=== PATIENT | male | born 1940 | race Caucasian/White ===

== ENCOUNTER 2016-06-03 13:44 | Inpatient (IN) | payer MEDICARE, BC ==
[2016-06-03] MEDS ORDERED: ALBUTEROL 0.083% 3 ML NEB NEB ONE (14:19)
[2016-06-03] MEDS ORDERED: Albuterol/Ipratropium Neb 3 ML NEB NEB ONE (14:19)
[2016-06-03] MEDS ORDERED: METHYLPREDNISOLONE 125 MG/2 ML VIAL IV ONE (14:19)
[2016-06-03 14:58] LABS: ALLEN'S TEST PASS; BEb 1.2 (+/- 2); TCO2 27.3 MMOL/L (23-27)
[2016-06-03 14:59] LABS: ABG Draw Site Right Radial
[2016-06-03] MEDS ORDERED: METHYLPREDNISOLONE 125 MG/2 ML VIAL ONE (15:08)
[2016-06-03 15:39] LABS: MPV 9.1 fL (7.4-10.4)
[2016-06-03 15:51] LABS: CALC CORRECTED 9.2 MG/DL (8.4-10.2); CALCIUM 8.5 MG/DL (8.4-10.2); CREATININE 1.5 MG/DL (0.66-1.25); TOTAL PROTEIN 6.4 G/DL (6.3-8.2)
[2016-06-03 15:52] LABS: PARTIAL THROMB. TIME 19.7 SEC (22-35)
[2016-06-03 16:03] LABS: SEG NEUTROPHIL 94 % (45-76)
[2016-06-03 16:04] LABS: TOTAL CELL COUNT 100
--- NOTE | 2016-06-03 16:10 | DIRPT ---
CLINICAL DATA: 76-year-old male with chest congestion and productive cough with shortness of breath for 3 weeks. Subsequent encounter. EXAM: CHEST 2 VIEW COMPARISON: 05/27/2016. FINDINGS: Interval development of left lower lobe consolidation. Recommend followup until clearance. Central pulmonary vascular prominence. Right base subsegmental atelectasis/scarring. Sequential pacemaker/ AICD in place with leads unchanged in position. Post CABG. Cardiomegaly. Calcified mildly tortuous aorta. IMPRESSION: Interval development of left lower lobe consolidation. Electronically Signed By: Francisco J Baxter M.D. On: 06/03/2016 16:07
--- NOTE | 2016-06-03 16:46 | EDPRACDOC ---
- General Information Stated Complaint: RESP Time Seen by Provider: 06/03/16 14:18 Home Medications: Home Medications Amiodarone HCl 200 mg PO HS 09/20/12 Budesonide/Formoterol [Symbicort 160-4.5 Mcg Inhaler] 2 inh INH BID PRN Dexlansoprazole [Dexilant] 60 mg PO QAM 09/20/12 Glimepiride [Amaryl] 4 mg PO QAM 09/20/12 Metoprolol Tartrate 25 mg PO BID 09/20/12 Lisinopril [Prinivil] 20 mg PO QAM 10/26/12 Furosemide [Lasix] 40 mg PO BID #90 tab 11/10/12 Albuterol Sulfate [Proair Hfa] 2 puff INH Q2H PRN #1 inhaler 05/27/16 CYANOCOBALAMIN (Vitamin B-12) [Vitamin B-12] 1,000 mcg IM QMONTH 05/27/16 Levofloxacin [Levaquin] 750 mg PO DAILY 05/27/16 Allergies/Adverse Reactions: Allergies Allergy/AdvReac Type Severity Reaction Status Date / Time codeine Allergy Unknown Verified 05/27/16 15:13 NARCOTICS Allergy Confusion Uncoded 05/27/16 15:14 - History of Present Illness Shortness of Breath: Moderate Relevant History: Reports: COPD Cough: Reports: Productive, Green, Yellow SOB Worsens with: Reports: Exertion, Movement SOB Improves with: Reports: Inhaler, Rest Associated Signs and symptoms: Reports: Nasal Symptoms, Nausea. Denies: Vomiting, Diarrhea, Myalgia Other History: SEEN THIS ED LAST WEEK FOR SAME, PLACED ON PRED AND LEVAQUIN. HAS PROGRESSIVELY GOTTEN WORSE. ED Past Medical History - History Reviewed Yes Nurses notes reviewed and agree except as marked - Patient Medical History Cardiac History: Reports: Coronary Artery Disease, Atrial Fibrillation, Hypertension, Congestive Heart Failure, Heart Attack, Cardiac Catheterization ( [id number] [id number]), CABG (4 vessel), Pacemaker, Cardiomyopathy Respiratory History: Reports: Asthma Musculoskeletal History: Reports: Arthritis Psychological History: Denies: Depression Systemic History: Reports: Diabetes, Hypothyroidism. Denies: Cancer Surgical History: Reports: CABG (4 vessel), Cardiac Catheterization (JUL [id number]) - Family Medical History Reports: Hypertension (MOTHER), Diabetes (PATERNAL G.MOTHER), Cancer (SISTER), Cardiac Disorders (FATHER, BROTHER, SISTER). Denies: Stroke - Social Medical History Smoking Status: Former smoker ETOH: None Substance Abuse: None Lives In: Home EDM Review of Systems - Review of Systems ROS Negative Except as Marked: Yes All systems reviewed and were negative except as marked ROS Unobtainable: Yes Review of systems cannot be obtained due to the patient's medical condition - Physical Exam Constitutional: Alert, Cachectic, Confused, Distress, Other (DISSHELVED) Oriented to: Time, Person, Place Last recorded Vital Signs: Last Vital Signs Temp Pulse 64 06/03/16 14:42 Resp 22 06/03/16 14:42 BP 141/64 06/03/16 14:42 Pulse Ox 88 L 06/03/16 14:42 Oxygen Pulse Oxygen Saturation 88 O2 Device Room Air Oxygen Flow Rate Fraction of Inspired Oxygen ( FIO2) - HEENT Head: Normal Oropharynx: Membranes Dry Nose: No Symptoms Reported Neck: Normal. negative: Edema - Respiratory/Cardiovascular Respiratory: Accessory Muscle Use, Diminished, Rales, Tachypnea, Other ( UNCOMFORTABLE,, INCREASE WOB) Cardiovascular: Normal - GI Auscultation: Normal Palpation: Normal Tenderness: Non tender - Musculoskeletal Back: Normal Extremities: Normal. negative: Pedal Edema - Integumentary Skin: Warm, Diaphoretic - Neurologic Memory Impaired: Normal Motor Function: Normal Mood Description: Anxious, Appropriate Thought: Coherent ED SOB MDM - Re-evaluation Re-evaluation 2 Re-evaluation Time: 16:00 Re-evaluation: MUCH IMPROVED ON OXYGENT - Results Result Diagrams: 06/03/16 15:20 06/03/16 15:20 Results: WBC 27.0 xk/uL (3.8-10.8) H 06/03/16 15:20 RBC 5.67 xM/uL (4.70-6.10) 06/03/16 15:20 Hgb 16.2 g/dL (14.0-18.0) 06/03/16 15:20 Hct 48.9 % (42-52) 06/03/16 15:20 MCV 86 fL (80-94) 06/03/16 15:20 MCH 28.5 pg (27-32) 06/03/16 15:20 MCHC 33.1 g/dl (33-36) 06/03/16 15:20 RDW 14.5 % (11.5-14.5) 06/03/16 15:20 Plt Count 91 xk/uL (130-400) L 06/03/16 15:20 MPV 9.1 fL (7.4-10.4) 06/03/16 15:20 Neut % (Auto) Cancelled 06/03/16 15:20 Lymph % (Auto) Cancelled 06/03/16 15:20 Williams % (Auto) Cancelled 06/03/16 15:20 Eos % (Auto) Cancelled 06/03/16 15:20 Baso % (Auto) Cancelled 06/03/16 15:20 Absolute Neuts (auto) Cancelled 06/03/16 15:20 Absolute Lymphs (auto) Cancelled 06/03/16 15:20 Seg Neuts % (Manual) 94 % (45-76) H 06/03/16 15:20 Band Neutrophils % 1 % (0-5) 06/03/16 15:20 Lymphocytes % (Manual) 4 % (17-44) L 06/03/16 15:20 Monocytes % (Manual) 1 % (0-10) 06/03/16 15:20 Absolute Neutrophils 25.65 xk/uL (1.7-8.2) H 06/03/16 15:20 Absolute Lymphocytes 1.08 xk/uL (0.65-4.75) 06/03/16 15:20 Vacuolated Neuts 1+ 06/03/16 15:20 Platelet Estimate Norm (NORMAL) 06/03/16 15:20 RBC Morphology Norm 06/03/16 15:20 PT 10.3 SEC (9.2-11.2) 06/03/16 15:20 INR 1.0 06/03/16 15:20 APTT 19.7 SEC (22-35) L 06/03/16 15:20 Puncture Site Right radial 06/03/16 14:52 pH 7.410 pH UNITS (7.35-7.45) 06/03/16 14:52 pCO2 41.0 mmHg (35-45) 06/03/16 14:52 pO2 48.0 mmHg (80-100) L* 06/03/16 14:52 HCO3 26.0 MMOL/L (22-26) 06/03/16 14:52 Total CO2 27.3 MMOL/L (23-27) H 06/03/16 14:52 Base Excess 1.2 (+/- 2) 06/03/16 14:52 FiO2 % 0.21 06/03/16 14:52 Specimen Drawn By Kurt 06/03/16 14:52 Sodium 134 mEq/L (137-146) L 06/03/16 15:20 Potassium 4.9 mEq/L (3.5-5.1) 06/03/16 15:20 Chloride 97 mEq/L (98-107) L 06/03/16 15:20 Carbon Dioxide 26 mMOL/L (22-33) 06/03/16 15:20 Anion Gap 16 mEq/L (8-16) 06/03/16 15:20 BUN 42 MG/DL (9-20) H 06/03/16 15:20 Creatinine 1.50 MG/DL (0.66-1.25) H 06/03/16 15:20 Estimated GFR (MDRD) 45 mL/min (>=60) L 06/03/16 15:20 Glucose 360 MG/DL (70-99) H 06/03/16 15:20 Calculated Osmolality 284 MOs/Kg (270-290) 06/03/16 15:20 Calcium 8.5 MG/DL (8.4-10.2) 06/03/16 15:20 Corrected Calcium 9.2 MG/DL (8.4-10.2) 06/03/16 15:20 Total Bilirubin 1.4 MG/DL (0.2-1.3) H 06/03/16 15:20 AST 31 IU/L (17-59) 06/03/16 15:20 ALT 44 IU/L (21-72) 06/03/16 15:20 Alkaline Phosphatase 116 IU/L (50-160) 06/03/16 15:20 Troponin I 0.07 ng/mL (<.04) 06/03/16 15:20 Bbq-D-Kfxoqtlezie Pept 4200 pg/mL (0-1800) H 06/03/16 15:20 Total Protein 6.4 G/DL (6.3-8.2) 06/03/16 15:20 Albumin 3.3 G/DL (3.5-5.0) L 06/03/16 15:20 Lab Results 0106/03/16 06/03/16 15:20 15:20 15:20 WBC 27.0 H RBC 5.67 Hgb 16.2 Hct 48.9 MCV 86 MCH 28.5 MCHC 33.1 RDW 14.5 Plt Count 91 L MPV 9.1 Neut % (Auto) Cancelled Lymph % (Auto) Cancelled Williams % (Auto) Cancelled Eos % (Auto) Cancelled Baso % (Auto) Cancelled Absolute Neuts (auto) Cancelled Absolute Lymphs (auto) Cancelled Seg Neuts % (Manual) 94 H Band Neutrophils % 1 Lymphocytes % (Manual) 4 L Monocytes % (Manual) 1 Absolute Neutrophils 25.65 H Absolute Lymphocytes 1.08 Vacuolated Neuts 1+ Platelet Estimate Norm RBC Morphology Norm PT 10.3 INR 1.0 APTT 19.7 L Puncture Site pH pCO2 pO2 HCO3 Total CO2 Base Excess FiO2 % Specimen Drawn By Sodium 134 L Potassium 4.9 Chloride 97 L Carbon Dioxide 26 Anion Gap 16 BUN 42 H Creatinine 1.50 H Estimated GFR (MDRD) 45 L Glucose 360 H Calculated Osmolality 284 Calcium 8.5 Corrected Calcium 9.2 Total Bilirubin 1.4 H AST 31 ALT 44 Alkaline Phosphatase 116 Troponin I 0.07 Oxg-R-Ovoydgrefhg Pept 4200 H Total Protein 6.4 Albumin 3.3 L 06/03/16 14:52 WBC RBC Hgb Hct MCV MCH MCHC RDW Plt Count MPV Neut % (Auto) Lymph % (Auto) Williams % (Auto) Eos % (Auto) Baso % (Auto) Absolute Neuts (auto) Absolute Lymphs (auto) Seg Neuts % (Manual) Band Neutrophils % Lymphocytes % (Manual) Monocytes % (Manual) Absolute Neutrophils Absolute Lymphocytes Vacuolated Neuts Platelet Estimate RBC Morphology PT INR APTT Puncture Site Right radial pH 7.410 pCO2 41.0 pO2 48.0 L* HCO3 26.0 Total CO2 27.3 H Base Excess 1.2 FiO2 % 0.21 Specimen Drawn By Belja Sodium Potassium Chloride Carbon Dioxide Anion Gap BUN Creatinine Estimated GFR (MDRD) Glucose Calculated Osmolality Calcium Corrected Calcium Total Bilirubin AST ALT Alkaline Phosphatase Troponin I Blf-M-Cetkzdbkpsz Pept Total Protein Albumin - EKG EKG #1 EKG Time: 14:45 -: Yes EKG interpreted by me Rate: bpm: 84 [place]: Normal Rhythm: NSR Block: RBBB Hypertrophy: None ST: Nonsp - Diagnostic Imaging Chest Image interpreted by: Radiologist - Additional Information Additional Information: PT HAS FAILED OUTPAT MANAGEMENT.. ED Critical Care Note - Critical Care Note Total Time (mins): 35 Comments: Due to the presence of and / or the risk of deterioration, my attendance to this patient required critical care time, including assessment/reassessment, documentation, ordering and interpreting ancillary studies, discussion with ED staff and consultants,patient and family, and excludes time spent on separately billable procedures. - Departure Disposition: Admit IP To This Hospital Condition: Stable Final Diagnosis: Acute respiratory failure with hypoxia, Community acquired bacterial pneumonia , COPD exacerbation, Sepsis Instructions: Community Acquired Pneumonia (ED) Education/Counseling Given To: Patient Education/Counseling Given Regarding: Diagnosis, Treatment, Prognosis Referrals: None,No Provider [Primary Care Provider] - One Week Decision to Admit Time: 16:54 Decision to admit date: 06/03/16 Decision to admit: from ED - Physician Consulted Hospitalist Time Called: 16:54 Provider Called: Homero Benz [employer] Returned Call: 16:54
[2016-06-03] MEDS ORDERED: AZITHROMYCIN 500 MG in D5W 250 ML IV ONE (16:55)
[2016-06-03] MEDS ORDERED: CEFTRIAXONE 1 GM in D5W 100 ML IV ONE (16:55)
[2016-06-03] MEDS ORDERED: NITROGLYCERINE 0.4 MG TAB SL PRN (16:56)
[2016-06-03] MEDS ORDERED: Albuterol/Ipratropium Neb 3 ML NEB NEB PRN (16:56)
[2016-06-03] MEDS ORDERED: PROMETHAZINE 25 MG/ML VIAL IV PRN (16:56)
[2016-06-03] MEDS ORDERED: DEXTROSE 25 GM/50 ML PFS IV PRN (16:56)
[2016-06-03] MEDS ORDERED: DOCUSATE-SENNA CONCENTRATE TAB PO PRN (16:56)
[2016-06-03] MEDS ORDERED: NS 1,000 ML IV ONE (16:56)
[2016-06-03] MEDS ORDERED: GLUCOSE (ORAL GEL) 15 GM TUBE PO PRN (16:56)
[2016-06-03] MEDS ORDERED: TEMAZEPAM 15 MG CAP PO PRN (16:56)
[2016-06-03] MEDS ORDERED: SIMETHICONE 80 MG TAB PO PRN (16:56)
[2016-06-03] MEDS ORDERED: GLUCAGON 1 MG VIAL SQ PRN (16:56)
[2016-06-03] MEDS ORDERED: MORPHINE 2 MG/ML INJECTION IV PRN (16:56)
[2016-06-03] MEDS ORDERED: GUAIFEN 100 MG-DEXTROMETH 10 MG PER 5 ML PO PRN (16:56)
[2016-06-03] MEDS ORDERED: ACETAMINOPHEN 650 MG SUPP PR PRN (16:56)
[2016-06-03] MEDS ORDERED: SODIUM CHLORIDE 0.9% 3 ML FLUSH FLUSH PRN (16:56)
[2016-06-03] MEDS ORDERED: Pharmacy Order Set Alert SCH (17:00)
--- NOTE | 2016-06-03 17:07 | HISTPHYS ---
- Chief Complaint short of breath, chest congestion - History of Present Illness Mr. Yamile Conn is a 76 year old gentleman who is chronically ill. He has a history of diabetes and congestive heart failure as well as a cardiomyopathy with an EF of 30%. He states that he has been feeling ill for about a month, and was seen in the Urgent Care Clinic 2 weeks ago for coughing and wheezing. He was treated for a COPD exacerbation with PO Levaquin for 7 days. He was seen in the ED a week ago, still had a clear CXR at that time, and was treated with the addition of Prednisone and albuterol inhalers and released home. Tonight he returns complaining of worsening shortness of breath for 2-3 days, increasing cough and chest congestion, weakness, and fever and chills. He has not had any nausea or vomiting. He is hypoxic on room air, with an O2 sat of 88 % at rest, he is tachypneic and tachycardic, with leukocytosis, and a left lower lobe infiltrate on his chest x-ray consistent with pneumonia. These findings are consistent with sepsis. He is to be admitted for further evaluation and management. Because he is already edematous and appears fluid overloaded, we will obtain an echocardiogram to guide fluid administration. - Medical History Cardiac History: Reports: Coronary Artery Disease, Atrial Fibrillation, Hypertension, Congestive Heart Failure, Heart Attack, Cardiac Catheterization ( JUL 022012), CABG (4 vessel), Pacemaker, Cardiomyopathy Respiratory History: Reports: Asthma GI/ History: Reports: Renal Disease (CKD-3), Kidney Stones Musculoskeletal History: Reports: Arthritis Systemic History: Reports: Diabetes, Hypothyroidism. Denies: Cancer Neurological History: Reports: No Significant History Psychological History: Denies: Depression - Surgical History Reports: CABG (4 vessel), Cardiac Catheterization (JUL 022012) - Medictions/Allergies Allergies codeine Allergy (Verified 05/27/16 15:13) Unknown NARCOTICS Allergy (Uncoded 05/27/16 15:14) Confusion Current Medication List: Reviewed Home Medications Amiodarone HCl 200 mg PO HS 09/20/12 Budesonide/Formoterol [Symbicort 160-4.5 Mcg Inhaler] 2 inh INH BID PRN Dexlansoprazole [Dexilant] 60 mg PO QAM 09/20/12 Glimepiride [Amaryl] 4 mg PO QAM 09/20/12 Metoprolol Tartrate 25 mg PO BID 09/20/12 Lisinopril [Prinivil] 20 mg PO QAM 10/26/12 Furosemide [Lasix] 40 mg PO BID #90 tab 11/10/12 Albuterol Sulfate [Proair Hfa] 2 puff INH Q2H PRN #1 inhaler 05/27/16 CYANOCOBALAMIN (Vitamin B-12) [Vitamin B-12] 1,000 mcg IM QMONTH 05/27/16 Levofloxacin [Levaquin] 750 mg PO DAILY 05/27/16 - Family History Reports: Hypertension (MOTHER), Diabetes (PATERNAL G.MOTHER), Cancer (SISTER), Cardiac Disorders (FATHER, BROTHER, SISTER). Denies: Stroke - Social History Travel Outside of [place] in the Last 3 Months?: No Lives: with Spouse Smoking Status: Former smoker Social History: Denies: Alcohol Use - Review of Systems Constitutional: Chills, Fever, Fatigue, Weakness Eyes: Vision Loss Ears: No Symptoms Reported Nose: No Symptoms Reported Mouth: Dry Mouth, Poor Dentition Throat/Neck: No Symptoms Reported, Snoring Respiratory: Brassy Cough, Cough, Shortness of Breath, Wheezing, Bronchitis, Dyspnea Cardiovascular: Chest Pain, Orthopnea, Palpitations, Other (feet swelling) Gastrointestinal: Nausea, Constipation. negative: Vomiting, Abdominal Pain Genitourinary: Frequency, Benign prostatic hyperplasia (BPH) Neurological: Dizziness, Weakness Musculoskeletal:: Osteoarthritis, Joint Pain, Swelling Integumentary: No Symptoms Reported Allergic/Immunologic: No Symptoms Reported Hematologic: No Symptoms Reported Endocrine: Diabetes. negative: Weight Gain Psychiatric: No Symptoms Reported - Physical Exam Vital Signs: Initial Vitals Pulse Rate 64 06/03/16 14:42 Respiratory Rate 22 06/03/16 14:42 Blood Pressure 141/64 06/03/16 14:42 Pulse Oxygen Saturation 88 L 06/03/16 14:42 Constitutional: Alert, Distress (mild-moderate respiratory distress), Restless, Other (chronically ill) Oriented to: Time, Person, Place - HEENT Head: Normal Eye: Normal (PERRL: EOMI) Oropharynx: Normal. negative: Drooling, Exudate, Red Tympanic Membrane: Dull ENT EAC: Cerumen Nose: negative: Bleeding, Congestion, Discharge Respiratory: Accessory Muscle Use, Rales (L base and perihilar kath), Rhonchi ( L base), Tachypnea, Wheezes (bilateral) Cardiovascular: Bradycardia (distant S1,S2,), Systolic murmur (2/6 LLSB) - GI Auscultation: Normal Palpation: Normal, Fluid Wave. negative: Enlarged liver, Enlarged spleen, Mass Tenderness: Non tender Flowers's Sign: Negative Rectal Exam: Deferred - Musculoskeletal Back: Normal, No Palpable Step-off. negative: CVA Tenderness Extremities: Edema (4+ feet to knees bilat.), Pedal Pulse (difficult to ascertain), Radial Pulse (normal) Spine: normal alignment, normal inspection - Integumentary Skin: Warm, Dry, Mottling. negative: Rash Lymphatics: Normal - Neurologic Memory Impaired: Normal Motor Function: Normal Cranial Nerve: Normal Cerebellar: Normal Mood Description: Normal Thought: Coherent Perception: Normal - Focused CV Perfusion Exam Date exam occurred: 06/03/16 Time of Exam: 14:15 Vital Signs: Last Vital Signs Temp Pulse 64 06/03/16 14:42 Resp 22 06/03/16 14:42 BP 141/64 06/03/16 14:42 Pulse Ox 88 L 06/03/16 14:42 Respiratory: Chest non-tender, Rales (L side), Rhonchi, Wheezing (bilateral) Cardiovascular/Chest: Bradycardia, Systolic murmur, Gallop/S4 Capillary Refill: Greater than 3 seconds Peripheral pulses: Absent: Posterior tibialis (R), Posterior tibialis (L), Diminished: Dorsalis pedis (R), Dorsalis pedis (L), Full: Radial (R), Radial (L) Skin Color: Dusky Skin Turgor: >3 Seconds, Edematous - Lab Results Laboratory Tests 06/03/16 06/03/16 06/03/16 14:52 14:58 15:20 WBC Hgb Hct Plt Count Seg Neuts % (Manual) Band Neutrophils % Lymphocytes % (Manual) Puncture Site Right radial pH 7.410 pCO2 41.0 pO2 48.0 L* HCO3 26.0 Total CO2 27.3 H Base Excess 1.2 FiO2 % 0.21 Sodium 134 L Potassium 4.9 Chloride 97 L Carbon Dioxide 26 Anion Gap 16 BUN 42 H Creatinine 1.50 H Estimated GFR (MDRD) 45 L Glucose 360 H POC Capillary Glucose Hemoglobin A1c Calculated Osmolality 284 Lactic Acid Corrected Calcium 9.2 Total Bilirubin 1.4 H AST 31 ALT 44 Alkaline Phosphatase 116 Troponin I 0.07 Lvi-G-Kbswpdqtlbs Pept 4200 H Albumin 3.3 L Urine Color Yellow Urine Clarity Sl cldy Urine pH 5.0 Ur Specific [place] 1.005 Urine Protein Neg Urine Glucose (UA) 3+ Urine Ketones Neg Urine Occult Blood 1+ H Urine Nitrite Neg Urine RBC 5-10 H Urine WBC 5-10 H Urine Bacteria Few 06/03/16 06/03/16 06/03/16 15:20 15:20 15:20 WBC 27.0 H Hgb 16.2 Hct 48.9 Plt Count 91 L Seg Neuts % (Manual) 94 H Band Neutrophils % 1 Lymphocytes % (Manual) 4 L Puncture Site pH pCO2 pO2 HCO3 Total CO2 Base Excess FiO2 % Sodium Potassium Chloride Carbon Dioxide Anion Gap BUN Creatinine Estimated GFR (MDRD) Glucose POC Capillary Glucose Hemoglobin A1c 10.5 H Calculated Osmolality Lactic Acid 2.6 H Corrected Calcium Total Bilirubin AST ALT Alkaline Phosphatase Troponin I Qhp-L-Usgtnoicqde Pept Albumin Urine Color Urine Clarity Urine pH Ur Specific [place] Urine Protein Urine Glucose (UA) Urine Ketones Urine Occult Blood Urine Nitrite Urine RBC Urine WBC Urine Bacteria 06/03/16 06/03/16 06/03/16 15:20 18:58 18:59 WBC Hgb Hct Plt Count Seg Neuts % (Manual) Band Neutrophils % Lymphocytes % (Manual) Puncture Site pH pCO2 pO2 HCO3 Total CO2 Base Excess FiO2 % Sodium Potassium Chloride Carbon Dioxide Anion Gap BUN Creatinine Estimated GFR (MDRD) Glucose POC Capillary Glucose 414 H* 416 H* Hemoglobin A1c Calculated Osmolality Lactic Acid Corrected Calcium Total Bilirubin AST ALT Alkaline Phosphatase Troponin I Npk-R-Kmsbkauveop Pept 4050 H Albumin Urine Color Urine Clarity Urine pH Ur Specific [place] Urine Protein Urine Glucose (UA) Urine Ketones Urine Occult Blood Urine Nitrite Urine RBC Urine WBC Urine Bacteria - Diagnostic Findings CXR: IMPRESSION: Interval development of left lower lobe consolidation. Electronically Signed By: Francisco J Baxter M.D. On: 06/03/2016 16:07 EKG: - Assessment (1) Sepsis A41.9 - SEPSIS, UNSPECIFIED ORGANISM Acute Present on Admission: Yes Qualifiers: Sepsis type: sepsis due to unspecified organism Qualified Code(s): A41.9 - Sepsis, unspecified organism Admit, obtain blood and sputum cultures, culture urine, and begin IV antibiotics. Give IV fluids carefully due to CHF and cardiomyopathy. May need to give repeated boluses to assure adequate hydration without exacerbating CHF. Check echocardiogram. (2) Acute respiratory failure with hypoxia J96.01 - ACUTE RESPIRATORY FAILURE WITH HYPOXIA Acute Present on Admission: Yes Due to pneumonia and COPD exacerbation. Provide supplemental oxygen, maintain O2 sat >92%. Use BiPAP as needed to manage pulmonary edema and air hunger. (3) Community acquired bacterial pneumonia J15.9 - UNSPECIFIED BACTERIAL PNEUMONIA Acute Present on Admission: Yes Begin IV antibiotics with Rocephin and Zithromax. Follow culture results. (4) Cardiomyopathy due metabolic or nutritional disease E63.9 - NUTRITIONAL DEFICIENCY, UNSPECIFIED; E88.9 - METABOLIC DISORDER, UNSPECIFIED; I43 - CARDIOMYOPATHY IN DISEASES CLASSIFIED ELSEWHERE Acute Present on Admission: Yes Last measured LVEF was 30%, will obtain recent echo or repeat in AM. Best to repeat to examine IVC volume (guidance for fluid status). (5) Diabetes mellitus due to underlying condition with stage 3 chronic kidney disease, with long-term current use of insulin E08.22 - DIABETES DUE TO UNDRL COND W DIABETIC CHRONIC KIDNEY DISEASE; N18.3 - CHRONIC KIDNEY DISEASE, STAGE 3 (MODERATE); Z79.4 - [facility] (CURRENT) USE OF INSULIN Chronic Present on Admission: Yes Hold PO diabetes medications, check CBG prior to meals and @ HS, use SSI. Place on diabetic and cardiac diet. (6) COPD exacerbation J44.1 - CHRONIC OBSTRUCTIVE PULMONARY DISEASE W (ACUTE) EXACERBATION Acute Present on Admission: Yes Duo-Nebs q6H scheduled and q2H PRN. No IV steroids at this time. Case Care Discussed with: Patient, Family, Nursing Staff Total Time: 65 min
[2016-06-03 17:28] LABS: LEUKOCYTES/URINE 2+ (NEGATIVE); NITRITE/URINE NEG (NEGATIVE); URINE OCCULT BLOOD 1+ (NEG/TRACE)
[2016-06-03] MEDS: Albuterol/Ipratropium Neb 3 ML NEB NEB SCH (19:18)
[2016-06-03] MEDS ORDERED: Vaccine Screening Complete SCH (20:00)
[2016-06-03] MEDS: SODIUM CHLORIDE 0.9% 3 ML FLUSH FLUSH SCH (20:14)
[2016-06-03] MEDS: CEFTRIAXONE 1 GM in D5W 100 ML IV SCH (20:14)
[2016-06-03] MEDS: NS 1,000 ML IV SCH (20:14)
[2016-06-03] MEDS ORDERED: FORMOTEROL INH PRN (20:16)
[2016-06-03] MEDS: REGULAR INSULIN 100 UNITS/ML - 3 ML VIAL SQ SCH ×3 (20:16→22:40)
[2016-06-03] MEDS ORDERED: [UNRECOGNIZED DRUG - OTHER] INH PRN (20:16)
[2016-06-03] MEDS ORDERED: BUDESONIDE INH PRN (20:16)
[2016-06-03] MEDS ORDERED: BUDESONIDE 0.5 MG NEB NEB PRN (20:21)
[2016-06-03] MEDS: METOPROLOL TARTRATE 25 MG TAB PO SCH (20:39)
[2016-06-03] MEDS: AMIODARONE 200 MG TAB PO SCH (20:39)
[2016-06-03] MEDS ORDERED: Enoxaparin 0.5 mg per kg per dose SQ SCH (21:00)
[2016-06-03] MEDS: AZITHROMYCIN 500 MG in D5W 250 ML IV SCH (22:13)
[2016-06-03] MEDS: FUROSEMIDE 40 MG/4 ML VIAL IV SCH (22:39)
[2016-06-03] MEDS: ONDANSETRON HCL 4 MG/2 ML VIAL IV PRN (22:39)
[2016-06-04] MEDS: Albuterol/Ipratropium Neb 3 ML NEB NEB SCH ×4 (01:17→19:38)
[2016-06-04] MEDS: ENOXAPARIN 60 MG/0.6 ML PFS SQ SCH ×2 (01:29→21:42)
[2016-06-04] MEDS ORDERED: INSULIN DETEMIR 100 UNITS/ML PEN SQ ONE (02:25)
[2016-06-04] MEDS ORDERED: REGULAR INSULIN 100 UNITS/ML - 3 ML VIAL IV ONE (02:54)
[2016-06-04] MEDS ORDERED: INSULIN DETEMIR 100 UNITS/ML PEN SQ SCH (03:00)
[2016-06-04 03:45] LABS: PT-INR 1.1
[2016-06-04 03:47] LABS: MPV 9.7 fL (7.4-10.4)
[2016-06-04 03:48] LABS: BLOOD UREA NITROGEN 48 MG/DL (9-20); CALCIUM 7.8 MG/DL (8.4-10.2); CALCULATED OSMOLALITY 289 MOs/Kg (270-290); CHLORIDE 95 mEq/L (98-107); SODIUM LEVEL 133 mEq/L (137-146)
[2016-06-04 03:57] LABS: GLUCOSE 462 MG/DL (70-99)
[2016-06-04] MEDS: SODIUM CHLORIDE 0.9% 3 ML FLUSH FLUSH SCH ×2 (04:06→16:51)
[2016-06-04] MEDS: LEVOTHYROXINE 112 MCG (0.112 MG) TAB PO SCH (04:22)
[2016-06-04] MEDS: PANTOPRAZOLE 40 MG TAB PO SCH (04:23)
[2016-06-04 04:24] LABS: SEG NEUTROPHIL 79 % (45-76)
[2016-06-04 04:55] LABS: ALLEN'S TEST PASS; BEb -1.6 (+/- 2); TCO2 27.2 MMOL/L (23-27)
[2016-06-04 05:23] LABS: ABG Draw Site Right Radial
[2016-06-04] MEDS: METHYLPREDNISOLONE 125 MG/2 ML VIAL IV SCH ×3 (06:17→21:43)
[2016-06-04] MEDS: REGULAR INSULIN 100 UNITS/ML - 3 ML VIAL SQ SCH ×4 (06:39→21:41)
[2016-06-04] MEDS ORDERED: FLU VACCINE (Afluria) 0.5 ML DOSE IM ONE (08:00)
[2016-06-04] MEDS ORDERED: PREDNISONE 20 MG TAB PO SCH (08:00)
--- NOTE | 2016-06-04 08:09 | DIRPT ---
CLINICAL DATA: 76-year-old male with history of left lower lobe pneumonia. EXAM: PORTABLE CHEST 1 VIEW COMPARISON: Chest x-ray 06/03/2016. FINDINGS: Extensive airspace consolidation persists in the left lower lobe. Small left pleural effusion. Opacities in the right lung base favored to reflect subsegmental atelectasis. No evidence of pulmonary edema. Heart size is borderline enlarged. Upper mediastinal contours are within normal limits. Atherosclerosis in the thoracic aorta. Status post median sternotomy for CABG. Left-sided pacemaker/AICD in position with lead tips projecting over the expected location of the right atrium and right ventricular apex. IMPRESSION: 1. Persistent left lower lobe airspace consolidation most compatible with pneumonia. 2. Small left pleural effusion. 3. Atherosclerosis. 4. Postoperative changes and support apparatus, as above. Electronically Signed By: Nacho Brooks M.D. On: 06/04/2016 08:06
[2016-06-04 08:52] LABS: ALLEN'S TEST PASS; BEb 0.1 (+/- 2); TCO2 25.9 MMOL/L (23-27)
[2016-06-04 08:53] LABS: ABG Draw Site Right Radial
[2016-06-04] MEDS: LISINOPRIL 20 MG TAB PO SCH (09:04)
[2016-06-04] MEDS: METOPROLOL TARTRATE 25 MG TAB PO SCH ×2 (09:04→21:42)
[2016-06-04] MEDS: ACETYLCYSTEINE 20% SOLN 4 ML NEB SCH ×2 (09:30→19:38)
[2016-06-04] MEDS: ONDANSETRON HCL 4 MG/2 ML VIAL IV PRN (10:34)
[2016-06-04] MEDS: FUROSEMIDE 40 MG/4 ML VIAL IV SCH ×2 (11:44→21:42)
--- NOTE | 2016-06-04 15:08 | GENMEDPROG ---
Chief Complaint: SEPSIS, PNEUMONIA, CHF, CARDIOMYOPATHY, RESP FAILURE Currently: Reports: Cough, Wheezing, DOWLING, SOB. Denies: Ambulating DVT Prophylaxis: Yes - Physical Examination Vital Signs and I&O: Last Vital Signs Temp 98.1 F 06/04/16 14:53 Pulse 83 06/04/16 14:53 Resp 20 06/04/16 14:53 BP 114/51 L 06/04/16 14:53 Pulse Ox 92 06/04/16 11:50 Oxygen Pulse Oxygen Saturation 92 O2 Device CPAP Oxygen Flow Rate 4 Fraction of Inspired Oxygen ( 70 FIO2) Intake & Output 06/01/16 06/02/16 06/03/16 06/04/16 23:59 23:59 23:59 23:59 Intake Total 100 390 Output Total 620 Balance 100 -230 Patient's weight 118.07 kg 117.934 kg General: Alert, Oriented x3, Cooperative, Mild distress, Obese, Weakness, Fatigue HEENT: Normal, PERRLA, EOMI, Mucous membr. moist/pink Neck: Full range of motion, Normal Trachea alignment, Normal inspection, No Masses palpable, JVD Lymphatics: Normal Respiratory: Accessory Muscle Use, Rales (L base and perihilar kath), Rhonchi ( L base), Tachypnea, Wheezes (bilateral) Cardiovascular: Regular rate and rhythm, Normal S1, Normal S2, Murmurs, LE Edema , Chest Non Tender GI: Normal bowel sounds, Soft, Non tender, No masses, Obese Extremities/Musculoskeletal: Normal pulses, Edema, DJD, FROM Skin: Warm,Dry and Intact, No rashes, No breakdown Neurological: Normal speech, Normal tone, Cranial nerves 3-12 NL, Drowsy Psych/Mental Status: Appropriate, Normal Affect, Cooperative Lab/DI/Studies Reviewed: Laboratory Tests 06/04/16 06/04/16 06/04/16 02:45 02:45 02:45 WBC 24.8 H Hgb 14.7 Hct 45.1 Plt Count 91 L Seg Neuts % (Manual) 79 H Band Neutrophils % 12 H Lymphocytes % (Manual) 2 L PT 11.4 H INR 1.1 pH pCO2 pO2 HCO3 Total CO2 Base Excess FiO2 % Mode BiPAP Sodium 133 L Potassium 4.9 Chloride 95 L Carbon Dioxide 26 Anion Gap 17 H BUN 48 H Creatinine 1.90 H Estimated GFR (MDRD) 34 L Glucose 462 H* POC Capillary Glucose Calculated Osmolality 289 Calcium 7.8 L Magnesium 2.20 06/04/16 06/04/16 06/04/16 04:50 06:13 08:45 WBC Hgb Hct Plt Count Seg Neuts % (Manual) Band Neutrophils % Lymphocytes % (Manual) PT INR pH 7.300 L 7.410 pCO2 52.0 H 39.0 pO2 45.0 L* 141.0 H HCO3 25.6 24.7 Total CO2 27.2 H 25.9 Base Excess -1.6 0.1 FiO2 % 45% vm 70 Mode BiPAP 12/ Sodium Potassium Chloride Carbon Dioxide Anion Gap BUN Creatinine Estimated GFR (MDRD) Glucose POC Capillary Glucose 345 H Calculated Osmolality Calcium Magnesium - Assessment (1) Sepsis Acute A41.9 - SEPSIS, UNSPECIFIED ORGANISM Qualifiers: Sepsis type: sepsis due to unspecified organism Qualified Code(s): A41.9 - Sepsis, unspecified organism Comment/Plan: obtain blood and sputum cultures, culture urine, and begin IV antibiotics. Give IV fluids carefully due to CHF and cardiomyopathy. May need to give repeated boluses to assure adequate hydration without exacerbating CHF. Check echocardiogram. (2) Acute respiratory failure with hypoxia Acute J96.01 - ACUTE RESPIRATORY FAILURE WITH HYPOXIA Comment/Plan: Due to pneumonia and COPD exacerbation. Provide supplemental oxygen, maintain O2 sat > 92%. Use BiPAP as needed to manage pulmonary edema and air hunger. (3) Community acquired bacterial pneumonia Acute J15.9 - UNSPECIFIED BACTERIAL PNEUMONIA Comment/Plan: Begin IV antibiotics with Rocephin and Zithromax. Follow culture results. (4) Cardiomyopathy due metabolic or nutritional disease Acute E63.9 - NUTRITIONAL DEFICIENCY, UNSPECIFIED; E88.9 - METABOLIC DISORDER , UNSPECIFIED; I43 - CARDIOMYOPATHY IN DISEASES CLASSIFIED ELSEWHERE Comment/ Plan: Last measured LVEF was 30%, will obtain recent echo or repeat in AM. Best to repeat to examine IVC volume (guidance for fluid status). 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 Place on diabetic and cardiac diet. (6) COPD exacerbation Acute J44.1 - CHRONIC OBSTRUCTIVE PULMONARY DISEASE W (ACUTE) EXACERBATION Comment/Plan: Duo-Nebs q6H scheduled and q2H PRN. No IV steroids at this time.
[2016-06-04] MEDS: NS 1,000 ML IV SCH (21:20)
[2016-06-04] MEDS: CEFTRIAXONE 1 GM in D5W 100 ML IV SCH (21:21)
[2016-06-04] MEDS: AMIODARONE 200 MG TAB PO SCH (21:41)
[2016-06-04] MEDS: INSULIN DETEMIR 100 UNITS/ML PEN SQ SCH (21:42)
[2016-06-04] MEDS: AZITHROMYCIN 500 MG in D5W 250 ML IV SCH (23:03)
[2016-06-05] MEDS: Albuterol/Ipratropium Neb 3 ML NEB NEB SCH ×4 (01:23→19:42)
[2016-06-05] MEDS: PANTOPRAZOLE 40 MG TAB PO SCH (04:11)
[2016-06-05] MEDS: LEVOTHYROXINE 112 MCG (0.112 MG) TAB PO SCH (04:12)
[2016-06-05] MEDS: METHYLPREDNISOLONE 125 MG/2 ML VIAL IV SCH (04:12)
[2016-06-05] MEDS: SODIUM CHLORIDE 0.9% 3 ML FLUSH FLUSH SCH ×2 (04:12→15:52)
[2016-06-05] MEDS: REGULAR INSULIN 100 UNITS/ML - 3 ML VIAL SQ SCH ×4 (06:29→20:45)
[2016-06-05 06:45] VITALS: BMI 34.6
[2016-06-05] MEDS: ACETYLCYSTEINE 20% SOLN 4 ML NEB SCH ×2 (08:42→19:42)
[2016-06-05] MEDS: FUROSEMIDE 40 MG/4 ML VIAL IV SCH ×2 (08:57→20:44)
[2016-06-05] MEDS: LISINOPRIL 20 MG TAB PO SCH (08:58)
[2016-06-05] MEDS: METOPROLOL TARTRATE 25 MG TAB PO SCH ×2 (08:58→20:45)
--- NOTE | 2016-06-05 13:49 | GENMEDPROG ---
Currently: Reports: Cough, Wheezing, DOWLING, SOB. Denies: Ambulating DVT Prophylaxis: Yes - Physical Examination Vital Signs and I&O: Last Vital Signs Temp 97.6 F 06/05/16 11:35 Pulse 65 06/05/16 11:35 Resp 18 06/05/16 11:35 BP 120/62 06/05/16 11:35 Pulse Ox 93 06/05/16 11:35 Oxygen Pulse Oxygen Saturation 93 O2 Device Nasal Cannula Oxygen Flow Rate 4 Fraction of Inspired Oxygen ( 40 FIO2) Intake & Output 06/02/16 06/03/16 06/04/16 06/05/16 23:59 23:59 23:59 23:59 Intake Total 100 1263 1330 Output Total 1440 180 Balance 100 -177 1150 Patient's weight 118.07 kg 117.934 kg 118.977 kg General: Alert, Oriented x3, Cooperative, Mild distress, Obese, Weakness, Fatigue HEENT: Normal, PERRLA, EOMI, Mucous membr. moist/pink Neck: Full range of motion, Normal Trachea alignment, Normal inspection, No Masses palpable, JVD Lymphatics: Normal Respiratory: Accessory Muscle Use, Rales (L base and perihilar kath), Rhonchi ( L base), Tachypnea, Wheezes (bilateral) Cardiovascular: Regular rate and rhythm, Normal S1, Normal S2, Murmurs, LE Edema , Chest Non Tender GI: Normal bowel sounds, Soft, Non tender, No masses, Obese Extremities/Musculoskeletal: Normal pulses, Edema, DJD, FROM Skin: Warm,Dry and Intact, No rashes, No breakdown Neurological: Normal speech, Normal tone, Cranial nerves 3-12 NL, Drowsy Psych/Mental Status: Appropriate, Normal Affect, Cooperative Lab/DI/Studies Reviewed: Microbiology 06/04/16 04:29 Urine - Clean Catch - Midstream Urine Culture - Final Yeast 06/03/16 18:50 Sputum Gram Stain - Final 06/03/16 18:50 Sputum Sputum Culture - Preliminary Staphylococcus species ECHO:EF 30-35% no clear view of IVC, suspected pulmonary HTN, dilated RA, moderate LVH with diffuse hypokinesis - Assessment (1) Sepsis Acute A41.9 - SEPSIS, UNSPECIFIED ORGANISM Qualifiers: Sepsis type: sepsis due to unspecified organism Qualified Code(s): A41.9 - Sepsis, unspecified organism Comment/Plan: obtain blood and sputum cultures, culture urine, and begin IV antibiotics. Give IV fluids carefully due to CHF and cardiomyopathy. May need to give repeated boluses to assure adequate hydration without exacerbating CHF. See echocardiogram. Patient has EF 30%. He does look better today. (2) Acute respiratory failure with hypoxia Acute J96.01 - ACUTE RESPIRATORY FAILURE WITH HYPOXIA Comment/Plan: Due to pneumonia and COPD exacerbation. Provide supplemental oxygen, maintain O2 sat > 92%. Use BiPAP as needed to manage pulmonary edema and air hunger. (3) Community acquired bacterial pneumonia Acute J15.9 - UNSPECIFIED BACTERIAL PNEUMONIA Comment/Plan: Begin IV antibiotics with Rocephin and Zithromax. Follow culture results. Sputum culture suggests Staph species, full ID & sensitivity to follow. Have added vancomycin. Also has yeast in urine, so added Diflucan. (4) Cardiomyopathy due metabolic or nutritional disease Acute E63.9 - NUTRITIONAL DEFICIENCY, UNSPECIFIED; E88.9 - METABOLIC DISORDER , UNSPECIFIED; I43 - CARDIOMYOPATHY IN DISEASES CLASSIFIED ELSEWHERE Comment/ Plan: Last measured LVEF was 30%, see current echo results. Essentially unchanged. 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 Place on diabetic and cardiac diet. (6) COPD exacerbation Acute J44.1 - CHRONIC OBSTRUCTIVE PULMONARY DISEASE W (ACUTE) EXACERBATION Comment/Plan: Duo-Nebs q6H scheduled and q2H PRN. No IV steroids at this time.
[2016-06-05] MEDS ORDERED: REGULAR INSULIN 100 UNITS/ML - 3 ML VIAL IV ONE (13:57)
[2016-06-05] MEDS: METHYLPREDNISOLONE 40 MG/1 ML VIAL IV SCH ×2 (15:50→22:26)
[2016-06-05] MEDS: ENOXAPARIN 60 MG/0.6 ML PFS SQ SCH (15:53)
[2016-06-05] MEDS ORDERED: METOPROLOL 5 MG/5 ML SDV IV ONE (16:00)
[2016-06-05] MEDS: NS 1,000 ML IV SCH (18:39)
[2016-06-05] MEDS: AMIODARONE 200 MG TAB PO SCH (20:44)
[2016-06-05] MEDS: CEFTRIAXONE 1 GM in D5W 100 ML IV SCH (20:45)
[2016-06-05] MEDS: INSULIN DETEMIR 100 UNITS/ML PEN SQ SCH (20:46)
[2016-06-05] MEDS ORDERED: SODIUM CHLORIDE 0.9% 3 ML FLUSH FLUSH PRN (21:21)
[2016-06-05] MEDS ORDERED: SODIUM CHLORIDE 0.9% 3 ML FLUSH FLUSH SCH (22:00)
[2016-06-05] MEDS: AZITHROMYCIN 500 MG in D5W 250 ML IV SCH (22:25)
[2016-06-06] MEDS: Fluconazole 200 mg in NS 200 MG/100 ML ML IV SCH ×2 (00:15→22:34)
[2016-06-06] MEDS: Albuterol/Ipratropium Neb 3 ML NEB NEB SCH ×4 (02:49→19:27)
[2016-06-06] MEDS: METHYLPREDNISOLONE 40 MG/1 ML VIAL IV SCH ×2 (05:36→17:20)
[2016-06-06] MEDS: PANTOPRAZOLE 40 MG TAB PO SCH (05:36)
[2016-06-06] MEDS: LEVOTHYROXINE 112 MCG (0.112 MG) TAB PO SCH (05:36)
[2016-06-06] MEDS: SODIUM CHLORIDE 0.9% 3 ML FLUSH FLUSH SCH ×2 (05:37→17:21)
[2016-06-06] MEDS: REGULAR INSULIN 100 UNITS/ML - 3 ML VIAL SQ SCH ×4 (05:44→20:56)
[2016-06-06 07:29] LABS: MPV 9.3 fL (7.4-10.4)
[2016-06-06] MEDS: ACETYLCYSTEINE 20% SOLN 4 ML NEB SCH ×2 (07:36→19:28)
[2016-06-06] MEDS: LISINOPRIL 20 MG TAB PO SCH (08:24)
[2016-06-06] MEDS: METOPROLOL TARTRATE 25 MG TAB PO SCH ×2 (08:24→20:51)
[2016-06-06] MEDS: FUROSEMIDE 40 MG/4 ML VIAL IV SCH ×2 (08:26→20:53)
[2016-06-06 08:36] LABS: BLOOD UREA NITROGEN 78 MG/DL (9-20); CALCIUM 8.2 MG/DL (8.4-10.2); CALCULATED OSMOLALITY 285 MOs/Kg (270-290); CHLORIDE 96 mEq/L (98-107); GLUCOSE 331 MG/DL (70-99); SODIUM LEVEL 129 mEq/L (137-146)
[2016-06-06] MEDS: ACETAMINOPHEN 325 MG/TAB TABLET PO PRN ×2 (10:43→21:03)
[2016-06-06] MEDS ORDERED: REGULAR INSULIN 100 UNITS/ML - 3 ML VIAL IV ONE (15:00)
[2016-06-06] MEDS: ENOXAPARIN 60 MG/0.6 ML PFS SQ SCH (17:20)
[2016-06-06] MEDS: Cefazolin 2gm/50 ml D5W 2 GM/50 ML RTU IV SCH (19:13)
--- NOTE | 2016-06-06 20:03 | GENMEDPROG ---
Chief Complaint: sepsis, MSSA pneumonia, Respiratory failure, CHF, ARF, DM-2, Currently: Reports: Cough, Wheezing, DOWLING, SOB. Denies: Ambulating DVT Prophylaxis: Yes - Physical Examination Vital Signs and I&O: Last Vital Signs Temp 97.7 F 06/06/16 16:00 Pulse 59 L 06/06/16 19:28 Resp 18 06/06/16 19:28 BP 120/57 L 06/06/16 16:00 Pulse Ox 93 06/06/16 19:28 Oxygen Pulse Oxygen Saturation 93 O2 Device Nasal Cannula Oxygen Flow Rate 4 Fraction of Inspired Oxygen ( 35 FIO2) Intake & Output 06/03/16 06/04/16 06/05/16 06/06/16 23:59 23:59 23:59 23:59 Intake Total 100 1263 2727 1920 Output Total 9419 934 6188 Balance 100 -177 2347 120 Patient's weight 118.07 kg 117.934 kg 118.977 kg 121.608 kg General: Alert, Oriented x3, Cooperative, Mild distress, Obese, Weakness, Fatigue HEENT: Normal, PERRLA, EOMI, Mucous membr. moist/pink Neck: Full range of motion, Normal Trachea alignment, Normal inspection, No Masses palpable, JVD Lymphatics: Normal Respiratory: Accessory Muscle Use, Rales (L base and perihilar kath), Rhonchi ( L base), Tachypnea, Wheezes (bilateral) Cardiovascular: Regular rate and rhythm, Normal S1, Normal S2, Murmurs, LE Edema , Chest Non Tender GI: Normal bowel sounds, Soft, Non tender, No masses, Obese Extremities/Musculoskeletal: Normal pulses, Edema, DJD, FROM Skin: Warm,Dry and Intact, No rashes, No breakdown Neurological: Normal speech, Normal tone, Cranial nerves 3-12 NL, Drowsy Psych/Mental Status: Appropriate, Normal Affect, Cooperative - Assessment (1) Sepsis Acute A41.9 - SEPSIS, UNSPECIFIED ORGANISM Qualifiers: Sepsis type: sepsis due to unspecified organism Qualified Code(s): A41.9 - Sepsis, unspecified organism Comment/Plan: obtain blood and sputum cultures, culture urine, and begin IV antibiotics. Give IV fluids carefully due to CHF and cardiomyopathy. May need to give repeated boluses to assure adequate hydration without exacerbating CHF. See echocardiogram. Patient has EF 30%. He does look better today. (2) Acute respiratory failure with hypoxia Acute J96.01 - ACUTE RESPIRATORY FAILURE WITH HYPOXIA Comment/Plan: Due to pneumonia and COPD exacerbation. Provide supplemental oxygen, maintain O2 sat > 92%. Use BiPAP as needed to manage pulmonary edema and air hunger. (3) Community acquired bacterial pneumonia Acute J15.9 - UNSPECIFIED BACTERIAL PNEUMONIA Comment/Plan: Sputum culture suggests Staph species, MSSA. Stop vancomycin, will change to Ancef 1 g IV q 8 hr. Also has yeast in urine, so added Diflucan. (4) Cardiomyopathy due metabolic or nutritional disease Acute E63.9 - NUTRITIONAL DEFICIENCY, UNSPECIFIED; E88.9 - METABOLIC DISORDER , UNSPECIFIED; I43 - CARDIOMYOPATHY IN DISEASES CLASSIFIED ELSEWHERE Comment/ Plan: Last measured LVEF was 30%, see current echo results. Essentially unchanged. 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 Place on diabetic and cardiac diet. Increase Lantus due to increased insulin need while on steroids. Monitor FSBS closely. (6) COPD exacerbation Acute J44.1 - CHRONIC OBSTRUCTIVE PULMONARY DISEASE W (ACUTE) EXACERBATION Comment/Plan: Duo-Nebs q6H scheduled and q2H PRN. No IV steroids at this time.
[2016-06-06] MEDS: CEFTRIAXONE 1 GM in D5W 100 ML IV SCH (20:49)
[2016-06-06] MEDS: AMIODARONE 200 MG TAB PO SCH (20:51)
[2016-06-06] MEDS: INSULIN DETEMIR 100 UNITS/ML PEN SQ SCH (20:55)
[2016-06-06] MEDS ORDERED: AZITHROMYCIN 250 MG TAB PO SCH (21:00)
[2016-06-07] MEDS: Albuterol/Ipratropium Neb 3 ML NEB NEB SCH ×4 (01:12→19:36)
[2016-06-07] MEDS: Cefazolin 2gm/50 ml D5W 2 GM/50 ML RTU IV SCH ×3 (02:40→18:15)
[2016-06-07] MEDS: SODIUM CHLORIDE 0.9% 3 ML FLUSH FLUSH SCH ×2 (04:45→18:14)
[2016-06-07] MEDS: PANTOPRAZOLE 40 MG TAB PO SCH (04:45)
[2016-06-07] MEDS: LEVOTHYROXINE 112 MCG (0.112 MG) TAB PO SCH (04:45)
[2016-06-07] MEDS: METHYLPREDNISOLONE 40 MG/1 ML VIAL IV SCH ×2 (04:46→18:16)
[2016-06-07] MEDS: REGULAR INSULIN 100 UNITS/ML - 3 ML VIAL SQ SCH ×4 (06:01→20:19)
[2016-06-07] MEDS: ACETYLCYSTEINE 20% SOLN 4 ML NEB SCH (07:36)
[2016-06-07] MEDS: FUROSEMIDE 40 MG/4 ML VIAL IV SCH ×3 (09:10→21:06)
[2016-06-07] MEDS: METOPROLOL TARTRATE 25 MG TAB PO SCH ×2 (09:11→20:18)
[2016-06-07 09:21] LABS: BLOOD UREA NITROGEN 83 MG/DL (9-20); CALCULATED OSMOLALITY 287 MOs/Kg (270-290); CHLORIDE 98 mEq/L (98-107); GLUCOSE 261 MG/DL (70-99); SODIUM LEVEL 131 mEq/L (137-146)
[2016-06-07] MEDS: LISINOPRIL 20 MG TAB PO SCH (10:39)
--- NOTE | 2016-06-07 10:39 | GENMEDPROG ---
Chief Complaint: MSSA PNEUMONIA, SYS CHF, ACUTE & CHR RESP FAILURE, HCVD, Currently: Reports: Cough, Wheezing, DOWLING, SOB. Denies: Ambulating DVT Prophylaxis: Yes - Physical Examination Vital Signs and I&O: Last Vital Signs Temp 97.6 F 06/07/16 08:00 Pulse 115 06/07/16 08:00 Resp 21 06/07/16 08:00 BP 108/52 L 06/07/16 08:00 Pulse Ox 94 06/07/16 08:00 Oxygen Pulse Oxygen Saturation 94 O2 Device Nasal Cannula Oxygen Flow Rate 4 Fraction of Inspired Oxygen ( 35 FIO2) Intake & Output 06/04/16 06/05/16 06/06/16 06/07/16 23:59 23:59 23:59 23:59 Intake Total 1263 2727 1920 603 Output Total 9752 985 3685 900 Balance -177 2969 -039 -220 Patient's weight 117.934 kg 118.977 kg 121.608 kg 121.926 kg General: Alert, Oriented x3, Cooperative, Mild distress, Obese, Weakness, Fatigue HEENT: Normal, PERRLA, EOMI, Mucous membr. moist/pink Neck: Full range of motion, Normal Trachea alignment, Normal inspection, No Masses palpable, JVD Lymphatics: Normal Respiratory: Accessory Muscle Use, Rales (L base and perihilar kath), Rhonchi ( L base), Tachypnea, Wheezes (bilateral) Cardiovascular: Regular rate and rhythm, Normal S1, Normal S2, Murmurs, LE Edema , Chest Non Tender GI: Normal bowel sounds, Soft, Non tender, No masses, Obese Extremities/Musculoskeletal: Normal pulses, Edema, DJD, FROM Skin: Warm,Dry and Intact, No rashes, No breakdown Neurological: Normal speech, Normal tone, Cranial nerves 3-12 NL, Drowsy Psych/Mental Status: Appropriate, Normal Affect, Cooperative Lab/DI/Studies Reviewed: Laboratory Tests 06/07/16 06/07/16 06/07/16 04:26 08:49 08:49 WBC 18.9 H Hgb 13.8 L Hct 41.7 L Plt Count 103 L Sodium 131 L Potassium 4.5 Chloride 98 Carbon Dioxide 23 Anion Gap 15 BUN 83 H Creatinine 2.20 H Estimated GFR (MDRD) 29 L Glucose 261 H POC Capillary Glucose 177 H Calculated Osmolality 287 Calcium 8.0 L Magnesium 2.30 [id number] Pept 89975 H - Assessment (1) Sepsis Acute A41.9 - SEPSIS, UNSPECIFIED ORGANISM Qualifiers: Sepsis type: methicillin susceptible Staphylococcus aureus Qualified Code(s ): A41.01 - Sepsis due to Methicillin susceptible Staphylococcus aureus Comment/Plan: Obtained blood and sputum cultures, cultured urine, and continue IV antibiotics. RESTRICT FLUIDS AT THIS TIME. See echocardiogram. Patient has EF 30%. Sputum culture + for MSSA. (2) Acute respiratory failure with hypoxia Acute J96.01 - ACUTE RESPIRATORY FAILURE WITH HYPOXIA Comment/Plan: Due to pneumonia and COPD exacerbation. Provide supplemental oxygen, maintain O2 sat > 92%. Use BiPAP as needed to manage pulmonary edema and air hunger. (3) Pneumonia due to Staphylococcus aureus Acute J15.211 - PNEUMONIA DUE TO METHICILLIN SUSCEP STAPH Comment/Plan: Sputum culture + for Staph species, MSSA. Stop vancomycin, will change to Ancef 1 g IV q 8 hr. Also has yeast in urine, so added Diflucan. Stop other antibiotics. (4) Acute renal failure Acute N17.9 - ACUTE KIDNEY FAILURE, UNSPECIFIED Qualifiers: Acute renal failure type: with other specified pathological lesion Qualified Code(s): N17.8 - Other acute kidney failure Comment/Plan: BUN has risen from 42-83 and creatinine up from 1.5 to 2.2 now. Will continue to give slow fluids and small amounts of Lasix. Re-evaluate renal function in AM. Hold all nephrotoxic meds. (5) Cardiomyopathy due metabolic or nutritional disease Acute E63.9 - NUTRITIONAL DEFICIENCY, UNSPECIFIED; E88.9 - METABOLIC DISORDER , UNSPECIFIED; I43 - CARDIOMYOPATHY IN DISEASES CLASSIFIED ELSEWHERE Comment/ Plan: Restrict fluids, increase diuretic, hold JARETH for now due to decreasing renal function. Monitor renal function closely. Last measured LVEF was 30%, see current echo results. Essentially unchanged. 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 Place on diabetic and cardiac diet. Increase Lantus due to increased insulin need while on steroids. Monitor FSBS closely. (7) COPD exacerbation Acute J44.1 - CHRONIC OBSTRUCTIVE PULMONARY DISEASE W (ACUTE) EXACERBATION Comment/Plan: Duo-Nebs q6H scheduled and q2H PRN. No IV steroids at this time.
[2016-06-07] MEDS: ENOXAPARIN 60 MG/0.6 ML PFS SQ SCH (18:16)
[2016-06-07] MEDS: AMIODARONE 200 MG TAB PO SCH (20:17)
[2016-06-07] MEDS: INSULIN DETEMIR 100 UNITS/ML PEN SQ SCH (20:20)
[2016-06-07] MEDS: Fluconazole 200 mg in NS 200 MG/100 ML ML IV SCH (21:07)
[2016-06-08] MEDS: Albuterol/Ipratropium Neb 3 ML NEB NEB SCH ×3 (02:04→13:25)
[2016-06-08] MEDS: Cefazolin 2gm/50 ml D5W 2 GM/50 ML RTU IV SCH ×2 (02:47→09:53)
[2016-06-08] MEDS: REGULAR INSULIN 100 UNITS/ML - 3 ML VIAL SQ SCH ×2 (05:30→12:07)
[2016-06-08] MEDS: PANTOPRAZOLE 40 MG TAB PO SCH (05:33)
[2016-06-08] MEDS: LEVOTHYROXINE 112 MCG (0.112 MG) TAB PO SCH (05:33)
[2016-06-08] MEDS: SODIUM CHLORIDE 0.9% 3 ML FLUSH FLUSH SCH (05:34)
[2016-06-08] MEDS: METHYLPREDNISOLONE 40 MG/1 ML VIAL IV SCH (05:35)
[2016-06-08] MEDS: FUROSEMIDE 40 MG/4 ML VIAL IV SCH (05:36)
[2016-06-08 07:14] LABS: MPV 9.5 fL (7.4-10.4)
[2016-06-08 07:31] LABS: BLOOD UREA NITROGEN 93 MG/DL (9-20); CALCIUM 8.5 MG/DL (8.4-10.2); CALCULATED OSMOLALITY 292 MOs/Kg (270-290); CHLORIDE 99 mEq/L (98-107); GLUCOSE 84 MG/DL (70-99); SODIUM LEVEL 137 mEq/L (137-146)
[2016-06-08 08:18] VITALS: BP 116/65; TEMP 97.4
[2016-06-08] MEDS: METOPROLOL TARTRATE 25 MG TAB PO SCH (09:43)
[2016-06-08 10:18] VITALS: PULSE 123
[2016-06-08 10:31] LABS: SEG NEUTROPHIL 87 % (45-76)
--- NOTE | 2016-06-08 13:18 | PCM.DCS92 ---
Discharge Condition: Stable Physician Follow up/Referrals: None,No Provider [Primary Care Provider] - One Week O2 Device: Nasal Cannula - DC Summary Notes Hospital Course Note:: Discharge summary on patient named FATIMAH GROSSMAN SR [place] [facility]16 by Karin Colby MD. Date of discharge is []. - Physical Exam Vital Signs: Last Vital Signs Temp 97.4 F L 06/08/16 08:00 Pulse 123 H 06/08/16 10:00 Resp 19 06/08/16 08:00 BP 116/65 06/08/16 08:00 Pulse Ox 95 06/08/16 08:00 Oxygen Pulse Oxygen Saturation 95 O2 Device Nasal Cannula Oxygen Flow Rate 4 Fraction of Inspired Oxygen ( 35 FIO2) Constitutional: Alert, Distress (mild-moderate respiratory distress), Restless, Other (chronically ill) Oriented to: Time, Person, Place - HEENT Head: Normal Eye: Normal (PERRL: EOMI) Oropharynx: Normal. negative: Drooling, Exudate, Red Tympanic Membrane: Dull ENT EAC: Cerumen Nose: negative: Bleeding, Congestion, Discharge - Respiratory/Cardiovascular Respiratory: Accessory Muscle Use, Rales (L base and perihilar kath), Rhonchi ( L base), Tachypnea, Wheezes (bilateral) - GI Auscultation: Normal Palpation: Normal, Fluid Wave. negative: Enlarged liver, Enlarged spleen, Mass Tenderness: Non tender Flowers's Sign: Negative Rectal Exam: Deferred - Musculoskeletal Back: Normal, No Palpable Step-off. negative: CVA Tenderness Extremities: Edema (4+ feet to knees bilat.), Pedal Pulse (difficult to ascertain), Radial Pulse (normal) - Integumentary Lymphatics: Normal - Neurologic Memory Impaired: Normal Cerebellar: Normal Mood Description: Normal Thought: Coherent Perception: Normal
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
== END 2016-06-08 14:17 | disposition left against medical advice (07) | DRG 871 ==
LOC: ED 13:44 → PCU 16:56
PROVIDERS: ADMIT Family Medicine; ATTEND Family Medicine
PROC: 039B3ZZ Drainage of Right Radial Artery, Percutaneous Approach (ICD-10-PCS; principal; 2016-06-03)
PROC: 5A09357 Assistance with Respiratory Ventilation, Less than 24 Consecutive Hours, Continuous Positive Airway Pressure (ICD-10-PCS; 2016-06-03)
DX: A41.01 Sepsis due to Methicillin susceptible Staphylococcus aureus (principal); J96.01 Acute respiratory failure with hypoxia; N17.8 Other acute kidney failure; J15.211 Pneumonia due to Methicillin susceptible Staphylococcus aureus; I43 Cardiomyopathy in diseases classified elsewhere; E11.22 Type 2 diabetes mellitus with diabetic chronic kidney disease; N18.3 Chronic kidney disease, stage 3 (moderate); I48.91 Unspecified atrial fibrillation; I25.810 Atherosclerosis of coronary artery bypass graft(s) without angina pectoris; E63.9 Nutritional deficiency, unspecified; E88.9 Metabolic disorder, unspecified; I12.9 Hypertensive chronic kidney disease with stage 1 through stage 4 chronic kidney disease, or unspecified chronic kidney disease; Z79.4 Long term (current) use of insulin; Z95.1 Presence of aortocoronary bypass graft; I25.2 Old myocardial infarction; Z95.0 Presence of cardiac pacemaker; J45.909 Unspecified asthma, uncomplicated; M19.90 Unspecified osteoarthritis, unspecified site; Z88.5 Allergy status to narcotic agent; Z79.899 Other long term (current) drug therapy; Z87.891 Personal history of nicotine dependence
CPT/HCPCS: 36415; 36600; 71010; 71020; 80048; 80053; 81001; 82043; 82803; 82947; 82962; 83036; 83605; 83735; 83880; 84484; 85007; 85027; 85610; 85730; 87040; 87070; 87077; 87086; 87186; 87205; 90471; 90656; 93005; 93306; 94640; 94660; 96372; 96374; 97162; 98960; 99283; G0237; J0456; J0690; J0696; J1450; J1650; J1940; J2405; J2920; J2930; J3370; J3490; J7060; J7070; J7608; J7620